=== PATIENT | male | born 1945 | race Caucasian/White ===

== ENCOUNTER → 2019-09-01 | Outpatient (CLI) | payer OTHER ==
[~2019-09-01] MED LIST: IOHEXOL 350 MG/ML 100ML INFUS..BTL IV ONE; IOHEXOL-350 75 ML VIAL IV ONE
== END | disposition home or self-care (01) ==
LOC: RAH 07:38
PROVIDERS: ATTEND Internal Medicine Cardiovascular Disease
DX: J43.2 Centrilobular emphysema (principal); J98.11 Atelectasis; I71.4 Abdominal aortic aneurysm, without rupture; N28.1 Cyst of kidney, acquired; I73.9 Peripheral vascular disease, unspecified; Z95.828 Presence of other vascular implants and grafts
CPT/HCPCS: 71275; 75635; Q9967 ×2

== ENCOUNTER → 2019-09-10 | Outpatient (CLI) | payer OTHER | END | disposition home or self-care (01) | LOC: SHCH 12:07 | PROVIDERS: ATTEND Internal Medicine Cardiovascular Disease | DX: R09.89 Other specified symptoms and signs involving the circulatory and respiratory systems (principal); I10 Essential (primary) hypertension | CPT/HCPCS: 93306; 93356; 93880 ==

== ENCOUNTER → 2019-09-14 | Outpatient (CLI) | payer OTHER ==
[~2019-09-14] VITALS: Ht 175.3 cm; Wt 95.3 kg
[~2019-09-14] MED LIST changes: +ASPI-556 PO; +GABA600T10 PO; +HYDR25TA PO; +INSU100V12 SQ; -IOHEXOL 350 MG/ML 100ML INFUS..BTL IV ONE; -IOHEXOL-350 75 ML VIAL IV ONE; +LISI-613 PO; +METF-446 PO; +METO-391 PO; +MULT-1258 PO; +PANT40TA54 PO; +POTA-79 PO; +REGADENOSON 0.4 MG/5 ML PF SYG IVP SCH; +SIMV80TA91 PO; +SUCR1TAB2 PO; +TERA5CAP4 PO; +VITA-164 PO
== END | disposition home or self-care (01) ==
LOC: SHCH 08:13
PROVIDERS: ATTEND Internal Medicine Cardiovascular Disease
DX: I10 Essential (primary) hypertension (principal); R07.89 Other chest pain
CPT/HCPCS: 78452; 93017; 96374; A9500 ×2; J2785

== ENCOUNTER 2019-10-22 07:23 | Day surgery (SDC) | payer OTHER ==
[~2019-10-22] VITALS: Ht 172.7 cm; Wt 92.5 kg
[2019-10-22] VITALS (12 sets, daily range): BP systolic 132–170; BP diastolic 62–88
[~2019-10-22 07:23] MED LIST changes: +ASPI-555 PO; -ASPI-556 PO; +PANT40TA25 PO; -PANT40TA54 PO; -REGADENOSON 0.4 MG/5 ML PF SYG IVP SCH
[2019-10-22 08:00] LABS: BASOPHILS % (AUTO) 1.1 % (0.0-5.0); EOSINOPHILS % (AUTO) 1.8 % (0.0-8.0); LYMPHOCYTES % (AUTO) 23.5 % (21.0-51.0); MEAN CORPUSCULAR HEMOGLOBIN 28.4 pg (27.0-33.0); MEAN CORPUSCULAR HGB CONC 31.6 g/dL (32.0-36.0); PLATELET COUNT (AUTO) 188 K/uL (130-400); RED BLOOD CELL COUNT(AUTO) 4.22 MIL/uL (4.50-6.20); RED CELL DISTRIBUTION WIDTH 13.2 % (11.0-15.5); WHITE BLOOD COUNT (AUTO) 8.4 K/uL (4.8-10.8)
[2019-10-22 08:18] LABS: APPEARANCE,URINE Clear (CLEAR); BILIRUBIN,URINE Negative (NEGATIVE); COLOR,URINE Yellow (YELLOW); GLUCOSE, URINE (UA) Negative (NEGATIVE); KETONES,URINE Negative (NEGATIVE); LEUKOCYTE ESTERASE ,URINE Small (NEGATIVE); NITRATE,URINE Positive (NEGATIVE); OCCULT BLOOD,URINE Negative (NEGATIVE); PROTEIN,URINE Trace mg/dL (NEGATIVE)
[2019-10-22 08:21] LABS: CREATININE 1.4 mg/dL (0.5-1.5); POTASSIUM 4.3 mmol/L (3.5-5.1)
--- NOTE | 2019-10-22 08:30 | NUR ---
REPORT CALLED [employer] AND SPOKE TO JEAN CARLOS EISENBERG PT DID NOT TAKE ASA THIS AM AND DOES NOT HAVE MEDICATION WITH HIM. NO NEW ORDERS GIVEN BY MD AT THIS TIME.
[2019-10-22 08:32] LABS: INR 0.99 (0.85-1.15); PARTIAL THROMBOPLASTIN TIME 26.6 SEC (26.3-35.5); PROTHROMBIN TIME 10.7 SEC (9.6-11.6)
[2019-10-22 08:52] LABS: BACTERIA,URINE Moderate /HPF (None Seen)
[2019-10-22 08:53] LABS: RBC,URINE 0-1 /HPF (0-1)
[2019-10-22] MEDS ORDERED: SODIUM CHLORIDE 0.9% 1000ML 1,000 ML IV ONE (09:15)
--- NOTE | 2019-10-22 09:40 | NUR ---
REPORT CALLED BOBTAIL DRIVER SERGEI ROBLES RN NOTIFIED OF UA RESULTS, WBC AND PT AFEBRILE AND HAS NOT BEEN TREATED FOR UTI RECENTLY. SERGEI WILL INFORM DR ROJAS
[2019-10-22] MEDS ORDERED: LEVOFLOXACIN 500 MG/D5W 100 ML 100 ML IV SCH (10:45)
[2019-10-22] MEDS ORDERED: LEVOFLOXACIN 500 MG/D5W 100 ML 100 ML ONE (11:18)
--- NOTE | 2019-10-22 12:45 | NUR ---
TRANSFER PT TAKEN TO IN [employer] AIDE VIA BED BY SERGEI EISENBERG. PT C/O BEING HUNGRY AND HEADACHE OTHERWISE PT IN NO DISTRESS
[2019-10-22] MEDS ORDERED: HEPARIN SODIUM 1000UNIT/ML 10ML VIAL ONE (12:57)
[2019-10-22] MEDS ORDERED: NICARDIPINE HCL 25 MG/10 ML ML IV ONE (12:57)
[2019-10-22] MEDS ORDERED: SODIUM BICARB 50MEQ 50ML VIAL ONE (12:57)
[2019-10-22] MEDS ORDERED: NITROGLYCERIN 2 MG/VIAL VIAL IV ONE (12:57)
[2019-10-22] MEDS ORDERED: MEPERIDINE-PF 25 MG/ML SYG ONE ×2 (12:58→13:12)
[2019-10-22] MEDS ORDERED: LIDOCAINE HCL 2% 20ML ONE (12:58)
[2019-10-22] MEDS ORDERED: IOHEXOL 350 MG/ML 100ML INFUS..BTL IV ONE (12:58)
[2019-10-22] MEDS ORDERED: IOHEXOL-350 50ML VIAL IV ONE (12:58)
[2019-10-22] MEDS ORDERED: MIDAZOLAM HCL 1 MG/ML 2ML VIAL ONE ×2 (12:58→13:11)
[2019-10-22] MEDS ORDERED: ASPIRIN 81MG TAB.CHEW ONE (14:07)
[2019-10-22] MEDS ORDERED: CLOPIDOGREL BISULFATE 300 MG TAB ONE (14:07)
[2019-10-22] MEDS ORDERED: SODIUM CHLORIDE 0.9% 1000ML 1,000 ML IV SCH (14:29)
[2019-10-22] MEDS ORDERED: ONDANSETRON HCL 4 MG/2 ML VIAL IVP PRN (14:30)
[2019-10-22] MEDS ORDERED: ACETAMINOPHEN-CODEINE 300/30MG TAB PO PRN ×2 (14:30)
[2019-10-22] MEDS ORDERED: DEXTROSE 50%-WATER 50 ML DISP.SYRIN IV PRN (14:30)
[2019-10-22] MEDS ORDERED: INSULIN HUMULIN R 100 UNIT/ML 3ML SQ SCH (16:30)
--- NOTE | 2019-10-22 16:40 | NUR ---
REPORT GIVEN TO MAURIZIO EISENBERG 4TH FLOOR AT 1640. PT STABLE NO DISTRESS NO C/O PAIN. TR BAND IN PLACE TO RT WRIST. PT TRANSFERRED IN VIA BED WITH PERSONAL BELONGINGS. IV TO LT HAND INTACT FLUIDS RUNNING 100ML/HR. ON ARRIVAL TO DAY PATIENT DEPT, TR BAND HAS 14ML AIR: TR BAND: 2ML REMOVED AT 1620 TR BAND: 2ML REMOVED AT 1635 TR BAND: 2ML REMOVED AT 1650
--- NOTE | 2019-10-22 16:55 | NUR ---
POST HEART CATH. PROCEDURE: PT. TO ROOM 425, AWAKE AND ALERT WITH TR BAND IN PLACE TORT. WRIST.
--- NOTE | 2019-10-22 17:00 | NUR ---
ORDERS IN PLACE FOR PT. TO BE DISCHARGED AT 8PM RONNIE ALVA PT. AND SPOUSE ARE AWARE .
--- NOTE | 2019-10-22 17:05 | NUR ---
2ML AIR REMOVED TR BAND.
--- NOTE | 2019-10-22 17:20 | NUR ---
2ML AIR FROM TR BAND.
--- NOTE | 2019-10-22 17:35 | NUR ---
2 ML AIR REMOVED FROM TR BAND
--- NOTE | 2019-10-22 17:50 | NUR ---
LAST 2ML OF AIR REMOVED AND TR BAND REMOVED, PRESSURE DRESSING APPLIED, NO BLEEDING OR SWELLING OR BRUISING PRESENT.
--- NOTE | 2019-10-22 18:19 | NUR ---
PT. IS ASLEEP AT PRESENT AND BREATHING EASY ON ROOM AIR.
--- NOTE | 2019-10-22 20:10 | NUR ---
PT DISCHARGED AT THIS TIME. INSTRUCTED TO HOLD METFORMIN FOR 48HRS. NO DISTRESS NOTED. TELE PACK AND IV REMOVED. TO MANAGER FIELD SALES AT FRONT ENTRANCE.
== END 2019-10-22 20:27 | disposition short-term general hospital (02) ==
LOC: DAH 07:23 → CLH 07:23 → 4DH 16:20 → CLH 20:27
PROVIDERS: ATTEND Internal Medicine Cardiovascular Disease
DX: I25.10 Atherosclerotic heart disease of native coronary artery without angina pectoris (principal); I10 Essential (primary) hypertension; E78.5 Hyperlipidemia, unspecified; E11.40 Type 2 diabetes mellitus with diabetic neuropathy, unspecified; Z88.0 Allergy status to penicillin; Z79.82 Long term (current) use of aspirin; Z79.01 Long term (current) use of anticoagulants; Z79.84 Long term (current) use of oral hypoglycemic drugs; Z79.899 Other long term (current) drug therapy
CPT/HCPCS: 36415; 71045; 80048; 81001; 82948 ×2; 85025; 85610; 85730; 87088; 93005; 93458; A4215; A4216; A4221; A4222; A4223 ×3; A4606; A4663; C1769 ×2; C1874 ×2; C1887; C1894; C9600; C9601; J1644 ×2; J1956; J2175 ×2; J2250 ×2; J3490 ×4; J7030 ×2; Q9965 ×2; Q9967 ×2; 99156; 99157; G0378

== ENCOUNTER → 2020-06-14 | Outpatient (CLI) | payer OTHER ==
[~2020-06-14] MED LIST changes: +ASCO-477 PO; -ASPI-555 PO; +ASPI-556 PO; +CILO100T PO; +CLOP75TA32 PO; +FERS325 PO; -METF-446 PO; -PANT40TA25 PO; +PANT40TA54 PO; -SUCR1TAB2 PO; +VIT1CAPS5 PO
== END | disposition home or self-care (01) ==
LOC: SHCH 08:25
PROVIDERS: ATTEND Internal Medicine Cardiovascular Disease
DX: E78.5 Hyperlipidemia, unspecified (principal); I10 Essential (primary) hypertension
CPT/HCPCS: 93306; 93356

== ENCOUNTER → 2022-10-18 | Outpatient (CLI) | payer OTHER ==
[~2022-10-18] MED LIST changes: -CILO100T PO; +CILO100T3 PO; -LISI-613 PO; +LISI20TA24 PO; +POTA-364 PO; -POTA-79 PO; -VITA-164 PO; +VITA-348 PO
== END | disposition home or self-care (01) ==
LOC: SHCH 08:41
PROVIDERS: ATTEND Internal Medicine Cardiovascular Disease
DX: I48.0 Paroxysmal atrial fibrillation (principal); I11.9 Hypertensive heart disease without heart failure; E11.9 Type 2 diabetes mellitus without complications; E78.5 Hyperlipidemia, unspecified
CPT/HCPCS: 93306

== ENCOUNTER → 2022-12-16 | Outpatient (CLI) | payer OTHER ==
[~2022-12-16] MED LIST changes: +REGADENOSON 0.4 MG/5 ML PF SYG IVP ONE
== END | disposition home or self-care (01) ==
LOC: SHCH 08:03
PROVIDERS: ATTEND Internal Medicine Cardiovascular Disease
DX: R94.39 Abnormal result of other cardiovascular function study (principal); I48.0 Paroxysmal atrial fibrillation; I48.92 Unspecified atrial flutter; I47.20 Ventricular tachycardia, unspecified
CPT/HCPCS: 78452; 96374; 93017; J2785; A9500 ×2

== ENCOUNTER 2022-12-20 17:43 | Observation (INO) | payer OTHER ==
[~2022-12-20] VITALS: Ht 175.3 cm; Wt 92.8 kg
[~2022-12-20 17:43] MED LIST changes: -REGADENOSON 0.4 MG/5 ML PF SYG IVP ONE
[2022-12-20 18:26] LABS: EOSINOPHILS % (AUTO) 2.6 % (0.0-8.0); LYMPHOCYTES % (AUTO) 30.5 % (21.0-51.0); MEAN CORPUSCULAR HGB CONC 31.6 g/dL (32.0-36.0); MEAN CORPUSCULAR VOLUME 85.6 fL (79-99); MONOCYTES % (AUTO) 9.4 % (3.0-13.0); NEUTROPHILS % (AUTO) 55.9 % (40.0-77.0); PLATELET COUNT (AUTO) 176 K/uL (130-400); RED BLOOD CELL COUNT(AUTO) 3.74 MIL/uL (4.50-6.20); RED CELL DISTRIBUTION WIDTH 14.8 % (11.0-15.5); WHITE BLOOD COUNT (AUTO) 7.2 K/uL (4.8-10.8)
[2022-12-20 18:53] LABS: ALBUMIN 3.7 g/dL (3.5-5.0); CREATININE 1.6 mg/dL (0.5-1.5); MAGNESIUM 1.9 mg/dL (1.80-2.40); POTASSIUM 4.2 mmol/L (3.5-5.1); TOTAL PROTEIN, SERUM 7.1 g/dL (6.0-8.3)
[2022-12-20] MEDS ORDERED: MECLIZINE HCL 25 MG TABLET PO PRN (21:30)
[2022-12-20] MEDS ORDERED: ONDANSETRON 4MG INJ IV PRN (21:30)
[2022-12-20] MEDS ORDERED: ACETAMINOPHEN 325 MG TAB PO PRN ×2 (21:30)
[2022-12-20] MEDS ORDERED: LACTULOSE 20 GM/30 ML UDCUP PO PRN (21:30)
[2022-12-20] MEDS: LACTATED RINGERS 1000ML 1,000 ML IV SCH (21:35)
[2022-12-20 23:00] VITALS: BP 144/75
[2022-12-21 05:00] VITALS: BP 121/62
[2022-12-21] MEDS: INSULIN HUMULIN R 100 UNIT/ML 3ML SQ SCH ×3 (05:39→10:37)
[2022-12-21] MEDS ORDERED: MAGNESIUM 2GM PREMIX 50ML 50 ML IV ONE (07:49)
[2022-12-21 08:00] VITALS: BP 153/78
[2022-12-21] MEDS: LACTATED RINGERS 1000ML 1,000 ML IV SCH (08:31)
[2022-12-21] MEDS ORDERED: FAMOTIDINE 20MG VIAL IV SCH (09:00)
[2022-12-21 11:00] VITALS: BP 158/72
== END 2022-12-21 15:45 | disposition home or self-care (01) ==
LOC: EDH 17:43 → INTOOBSV 21:14 → EDHIP 21:14 → 3BH 12-21 00:37
PROVIDERS: ADMIT Hospitalist; ATTEND Hospitalist
DX: R42 Dizziness and giddiness (principal); Z20.822 Contact with and (suspected) exposure to COVID-19; I95.9 Hypotension, unspecified; I10 Essential (primary) hypertension; E11.40 Type 2 diabetes mellitus with diabetic neuropathy, unspecified; I25.10 Atherosclerotic heart disease of native coronary artery without angina pectoris; I48.91 Unspecified atrial fibrillation; K21.9 Gastro-esophageal reflux disease without esophagitis; N40.0 Benign prostatic hyperplasia without lower urinary tract symptoms; D50.9 Iron deficiency anemia, unspecified; H90.3 Sensorineural hearing loss, bilateral; H93.13 Tinnitus, bilateral; I48.0 Paroxysmal atrial fibrillation; K22.70 Barrett's esophagus without dysplasia; G45.9 Transient cerebral ischemic attack, unspecified; N40.1 Benign prostatic hyperplasia with lower urinary tract symptoms; N39.498 Other specified urinary incontinence; N13.8 Other obstructive and reflux uropathy; R39.11 Hesitancy of micturition; R39.14 Feeling of incomplete bladder emptying; R33.8 Other retention of urine; R39.16 Straining to void; R39.15 Urgency of urination; R39.12 Poor urinary stream; R35.0 Frequency of micturition; R35.1 Nocturia; E78.00 Pure hypercholesterolemia, unspecified; Z95.5 Presence of coronary angioplasty implant and graft; Z87.891 Personal history of nicotine dependence; Z88.0 Allergy status to penicillin; Z86.73 Personal history of transient ischemic attack (TIA), and cerebral infarction without residual deficits; Z86.79 Personal history of other diseases of the circulatory system; Z79.01 Long term (current) use of anticoagulants; Z79.82 Long term (current) use of aspirin; Z79.899 Other long term (current) drug therapy; Z79.4 Long term (current) use of insulin; Z79.02 Long term (current) use of antithrombotics/antiplatelets; Z90.49 Acquired absence of other specified parts of digestive tract; Z98.890 Other specified postprocedural states; Z95.1 Presence of aortocoronary bypass graft
CPT/HCPCS: 96361 ×2; 99285; 83735; 84484; 80053; 85025; 87804 ×2; 83605; 36415; 87635; 71045; 70450; 70553; 93005; 96365; 96366; 96375; 82948 ×3; C9803; G0378 ×3; J3475; J3490; J7120

== ENCOUNTER 2023-01-28 05:41 | Day surgery (SDC) | payer OTHER ==
[2023-01-24 11:39] LABS: BASOPHILS # (AUTO) 0.07 K/uL (0.00-0.20); EOSINOPHILS # (AUTO) 0.16 K/uL (0.00-0.70); EOSINOPHILS % (AUTO) 2.2 % (0.0-8.0); HEMATOCRIT 30.6 % (42-54); IMMATURE GRANULOCYTE ABSOLUTE 0.06 K/uL (0-1); LYMPHOCYTES # (AUTO) 1.7 K/uL (1.0-4.8); LYMPHOCYTES % (AUTO) 23.8 % (21.0-51.0); MEAN CORPUSCULAR HEMOGLOBIN 24.1 pg (27.0-33.0); MEAN CORPUSCULAR HGB CONC 29.7 g/dL (32.0-36.0); MONOCYTES # (AUTO) 0.7 K/uL (0.1-1.0); MONOCYTES % (AUTO) 9.4 % (3.0-13.0); NEUTROPHILS # (AUTO) 4.6 K/uL (1.8-7.7); NEUTROPHILS % (AUTO) 62.8 % (40.0-77.0); PLATELET COUNT (AUTO) 161 K/uL (130-400); RED BLOOD CELL COUNT(AUTO) 3.78 MIL/uL (4.50-6.20); RED CELL DISTRIBUTION WIDTH 15.9 % (11.0-15.5); WHITE BLOOD COUNT (AUTO) 7.3 K/uL (4.8-10.8)
[2023-01-24 11:49] LABS: CREATININE 1.5 mg/dL (0.5-1.5); POTASSIUM 4.2 mmol/L (3.5-5.1)
[2023-01-24 11:50] LABS: INR 1.02 (0.85-1.15); PROTHROMBIN TIME 11.8 SEC (9.6-11.6)
[2023-01-24 11:51] LABS: PARTIAL THROMBOPLASTIN TIME 30.2 SEC (26.3-35.5)
[2023-01-24 12:11] VITALS: BP 139/64; PULSE 84; RESP 20
[2023-01-24 12:12] LABS: B-TYPE NATRIURETIC PEPTIDE 82 pg/mL (0-100)
[2023-01-24 12:21] LABS: APPEARANCE,URINE CLEAR (CLEAR); BILIRUBIN,URINE NEGATIVE (NEGATIVE); COLOR,URINE YELLOW (YELLOW); GLUCOSE, URINE (UA) >=1000 mg/dL (NEGATIVE); KETONES,URINE NEGATIVE (NEGATIVE); LEUKOCYTE ESTERASE ,URINE NEGATIVE Leu/uL (NEGATIVE); NITRATE,URINE NEGATIVE (NEGATIVE); OCCULT BLOOD,URINE NEGATIVE (NEGATIVE); PH,URINE 5.5 (5.0-8.0); PROTEIN,URINE NEGATIVE (NEGATIVE); UROBILINOGEN,URINE 0.2 mg/dL (0.2-1.0)
[2023-01-24 12:25] LABS: ADD UA MICROSCOPIC YES
[2023-01-24 12:27] LABS: BACTERIA,URINE RARE /HPF (None Seen); MUCUS,URINE RARE LPF (None Seen); NON-SQUAMOUS EPITHELIAL CELL 1 /HPF (0-2); RBC,URINE 26-50 /HPF (0-1); SQUAMOUS EPITHELIAL CELL,UR RARE /HPF (0-2)
[2023-01-28] VITALS (10 sets, daily range): BP systolic 124–147; BP diastolic 58–87; PULSE 65–82; RESP 15–21
[~2023-01-28] VITALS: Ht 175.3 cm; Wt 92.1 kg
[~2023-01-28 05:41] MED LIST changes: +APIX5TAB PO; -ASPI-556 PO; -CILO100T3 PO; +DRON400T7 PO; +EMPA25TA PO; -FERS325 PO; -GABA600T10 PO; -HYDR25TA PO; -LISI20TA24 PO; +METF-446 PO; -METO-391 PO; -MULT-1258 PO; +OMEG-148 PO; -VITA-348 PO; +VITA-395 PO; +VITA1CAP85 PO
[2023-01-28] MEDS ORDERED: ISOVUE-300 100 ML VIAL IV ONE (05:42)
[2023-01-28] MEDS ORDERED: 0.9%NACL 1000ML 1,000 ML IV ONE (06:27)
[2023-01-28] MEDS ORDERED: LIDOCAINE HCL 400MG/20ML VIAL ONE (07:06)
[2023-01-28] MEDS ORDERED: SODIUM BICARB 50MEQ 50ML VIAL 50 ML ONE (07:06)
[2023-01-28] MEDS ORDERED: IOHEXOL-350 75 ML VIAL IV ONE (07:07)
[2023-01-28] MEDS ORDERED: MIDAZOLAM HCL 1 MG/ML 2ML VIAL ONE ×3 (07:07→07:55)
[2023-01-28] MEDS ORDERED: MEPERIDINE-PF 25 MG/ML SYG ONE ×3 (07:07→07:55)
[2023-01-28] MEDS ORDERED: HEPARIN 10,000 UNIT/10ML (1,000 UNIT/ML) VIAL ONE (07:07)
[2023-01-28] MEDS ORDERED: NITROGLYCERIN 50MG VIAL ONE (07:07)
[2023-01-28] MEDS ORDERED: NICARDIPINE 25MG INJ IV ONE (07:23)
[2023-01-28] MEDS ORDERED: GLUCAGON 1MG KIT 1 MG ML IM PRN (08:30)
[2023-01-28] MEDS ORDERED: DEXTROSE 50%-WATER 50 ML DISP.SYRIN IV PRN (08:30)
[2023-01-28] MEDS ORDERED: INSULIN HUMULIN R 100 UNIT/ML 3ML SQ SCH (11:30)
== END 2023-01-28 12:30 | disposition home or self-care (01) ==
LOC: DAH 05:41
PROVIDERS: ATTEND Internal Medicine Cardiovascular Disease
DX: I25.119 Atherosclerotic heart disease of native coronary artery with unspecified angina pectoris (principal); E11.22 Type 2 diabetes mellitus with diabetic chronic kidney disease; I13.0 Hypertensive heart and chronic kidney disease with heart failure and stage 1 through stage 4 chronic kidney disease, or unspecified chronic kidney disease; N18.9 Chronic kidney disease, unspecified; I50.32 Chronic diastolic (congestive) heart failure; I48.0 Paroxysmal atrial fibrillation; E78.5 Hyperlipidemia, unspecified; Z79.899 Other long term (current) drug therapy; Z86.73 Personal history of transient ischemic attack (TIA), and cerebral infarction without residual deficits; Z95.5 Presence of coronary angioplasty implant and graft; Z90.89 Acquired absence of other organs; Z98.890 Other specified postprocedural states; Z88.0 Allergy status to penicillin; Z79.01 Long term (current) use of anticoagulants
CPT/HCPCS: 80048; 83880; 85025; 85610; 85730; 87077; 87088; 87186; 81001; 36415; 71045; 93005; 93458; 82948 ×2; C1769; A4649; C1894; Q9967; J3490 ×4; J7030; J1644 ×2; J2250 ×3; J2175 ×3; A4215; A4222; A4221; A4663; A4216; A4606; A4223 ×3; 99156; 99157

== ENCOUNTER → 2023-02-13 | Outpatient (CLI) | payer OTHER | END | disposition home or self-care (01) | LOC: SHCH 09:13 | PROVIDERS: ATTEND Internal Medicine Cardiovascular Disease | DX: I71.40 Abdominal aortic aneurysm, without rupture, unspecified (principal) | CPT/HCPCS: 93978 ==

== ENCOUNTER → 2024-09-03 | Outpatient (CLI) | payer OTHER ==
[~2024-09-03] MED LIST changes: +IOHEXOL 350 MG/ML 100ML INFUS..BTL IV ONE
--- NOTE | 2024-09-03 11:31 | HMCIMG ---
CT ANGIOGRAM OF THE ABDOMEN AND PELVIS WITHOUT AND WITH CONTRAST INDICATION: Abdominal aortic aneurysm, without rupture, unspecified TECHNIQUE: Routine 3 mm thick axial images were acquired through the abdomen and pelvis before and after the intravenous administration of 100 mL of Omnipaque 350 IV contrast. Maximum intensity projection coronal and sagittal reconstruction images provided for interpretation. 3-D volume renderings also included. CT was performed with one or more of the following dose reduction techniques: Automated exposure control, adjustment of the mA and/or kV according to patient size, or use of iterative reconstruction technique. COMPARISON: 09/01/2019 FINDINGS: CTA ABDOMEN: Stable small simple bilateral renal cysts without hydronephrosis. The liver, spleen, gallbladder, pancreas, and adrenal glands appear normal. No significant retroperitoneal adenopathy. No evidence for intra-abdominal fluid collection or abscess. No evidence for pneumoperitoneum or intra-abdominal free fluid. Slight decrease in size of fusiform infrarenal abdominal aortic aneurysm from 5.1 cm to 4.9 cm. Patent aortobiiliac stent without evidence for endoleak. Focal mild to moderate soft plaque along the medial wall of the distal right common iliac artery on axial image 97 of series 4 contributing to 40% stenosis. Streak artifact from vascular coiling at the left internal iliac arterial origin, and left internal iliac artery is not well-visualized, but distal branches are patent. Remainder of the iliac vessels are patent. Patent bilateral common femoral arteries. Tiny fat-containing nonobstructing umbilical hernia. CTA PELVIS: No significant pelvic adenopathy. No evidence for pelvic fluid collection or abscess. The small and large bowel loops appear normal without evidence for bowel obstruction. The appendix is normal. No inflammatory changes identified within the lower abdomen and pelvis. The urinary bladder appears normal. The visualized osseous structures are normal. IMPRESSION: 1. Slight decrease in size of fusiform infrarenal abdominal aortic aneurysm from 5.1 cm to 4.9 cm. Patent aortobiiliac stent without evidence for endoleak. 2. Focal mild to moderate soft plaque along the medial wall of the distal right common iliac artery contributing to 40% stenosis. 3. Tiny fat-containing nonobstructing umbilical hernia. 4. Additional minor findings, postsurgical changes, and pertinent negatives as reported.
== END ==
LOC: RAH 07:16
PROVIDERS: ATTEND Internal Medicine Cardiovascular Disease
DX: I71.43 Infrarenal abdominal aortic aneurysm, without rupture (principal); N28.1 Cyst of kidney, acquired; I70.201 Unspecified atherosclerosis of native arteries of extremities, right leg; K42.9 Umbilical hernia without obstruction or gangrene
CPT/HCPCS: 74174; Q9967

== ENCOUNTER → 2024-09-06 | Outpatient (CLI) | payer OTHER ==
[~2024-09-06] MED LIST changes: -IOHEXOL 350 MG/ML 100ML INFUS..BTL IV ONE
--- NOTE | 2024-09-09 10:10 | HMCSR ---
APPROVED REPORT Laterality: Bilateral Indications R09.89 Doppler Spectral Velocity Analysis PSV / EDVPSV / EDV ECA (R) 92 / cm/sECA (L) 90 / cm/s dICA (R) 91 / 16 cm/sdICA (L) 87 / 23 cm/s Matt (R) 110 / 26 cm/smICA (L) 99 / 22 cm/s pICA (R) 141 / 38 cm/spICA (L) 82 / 21 cm/s dCCA (R) 70 / 15 cm/sdCCA (L) 57 / 12 cm/s mCCA (R) 64 / 12 cm/smCCA (L) 73 / 15 cm/s pCCA (R) 57 / 13 cm/spCCA (L) 69 / 21 cm/s Vert (R) 54 / cm/sVert (L) 37 / cm/s Subl. (R) 105 / cm/sSubl. 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 LICA shows no stenosis. Bilateral vertebral arteries appear antegrade. 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 LICA shows no stenosis. Bilateral vertebral arteries appear antegrade. 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 LICA shows no stenosis. Bilateral vertebral arteries appear antegrade.
== END | disposition home or self-care (01) ==
LOC: SHCH 14:11
PROVIDERS: ATTEND Internal Medicine Cardiovascular Disease
DX: I65.23 Occlusion and stenosis of bilateral carotid arteries (principal); R09.89 Other specified symptoms and signs involving the circulatory and respiratory systems
CPT/HCPCS: 93880

== ENCOUNTER → 2024-09-21 | Outpatient (CLI) | payer OTHER ==
[~2024-09-21] MED LIST changes: +SULF1TAB89 PO
--- NOTE | 2024-09-23 06:38 | HMCSR ---
APPROVED REPORT EXAM: Two-dimensional and M-mode echocardiogram with Doppler and color Doppler. INDICATION ICD: Shortness of breath R06.02 2D Dimensions RVDd3.8 cmLVEF(%)40.1 (>50%)LVED Vol(simp.)114.0 mL IVSd0.9 (0.7-1.1cm)FS(%)20 %LVES Vol(simp.)61.0 mL LVDd6.0 (3.8-5.6cm)Ao Root(2D)2.9 (2.0-3.7cm)LVEF(%, simp.)46 % PWd1.0 (0.7-1.1cm)LVOT diam2.1 (1.8-2.4cm)LA ESV INDEX (BP)29.85 mL/m2 LVDs4.8 (2.5-4.0cm)IVC diam1.9 cm Aortic Valve AoV Vmax1.3 m/Manny Peak GR6.9 mmHgLVOT Vmax0.9 m/s AoV VTI0.3 mAo Mean GR4.3 mmHgLVOT VTI0.18 m CLIFF (VMAX)1.9 cm2Al P1/2T540 msAVA (VTI) 1.9 cm2 Mitral Valve MV E Vmax79.3 cm/sDECEL Dtoa883 ms MV A Ffns516.9 cm/s E/A ratio0.7 MR Max PG19 mmHg TDI E/E' Zfenvj82.5E/E' Harxcet63.5 Pulmonary Valve PV Vmax0.9 m/sPV VTI0.18 mPV Mean GR2 mmHg PV Peak GR3.6 mmHgPI End Koki. Yefri 1.2 cm/s Tricuspid Valve RAP (EST) 8 mmHg Left Ventricle The left ventricle is mildly dilated. There is normal left ventricular wall thickness. LVEF is 50%. N o left ventricle thrombus noted on this study. Stage I diastolic dysfunction. Right Ventricle The right ventricle is normal size. The right ventricular systolic function is normal. Atria The left atrium size is normal. The right atrium size is normal. Aortic Valve Aortic valve is trileaflet. Aortic valve leaflets are sclerotic but open well. Mild aortic regurgitat ion. There is no aortic valvular stenosis. Mitral Valve Mitral valve leaflets are sclerotic but open well. Mitral regurgitation is trace. There is no mitral valve stenosis. Tricuspid Valve The tricuspid valve leaflets appear normal. There is trace tricuspid regurgitation. Pulmonic Valve The pulmonic valve leaflets appear normal. There is trace pulmonic valvular regurgitation. Great Vessels The aortic root is normal in size. IVC is dilated and collapses >50% with inspiration. Pericardium No pericardial effusion. Conclusion The left ventricle is mildly dilated. LVEF is 50%. Stage I diastolic dysfunction. The right ventricle is normal size. The left atrium size is normal. Aortic valve is trileaflet. Aortic valve leaflets are sclerotic but open well. Mild aortic regurgitation. Mitral valve leaflets are sclerotic but open well. Mitral regurgitation is trace. There is trace tricuspid regurgitation. There is trace pulmonic valvular regurgitation. The aortic root is normal in size. IVC is dilated and collapses >50% with inspiration. No pericardial effusion.
== END | disposition home or self-care (01) ==
LOC: SHCH 13:51
PROVIDERS: ATTEND Internal Medicine Cardiovascular Disease
DX: I08.0 Rheumatic disorders of both mitral and aortic valves (principal); R06.02 Shortness of breath
CPT/HCPCS: 93306

== ENCOUNTER → 2024-10-07 | Outpatient (CLI) | payer OTHER ==
[~2024-10-07] MED LIST changes: -EMPA25TA PO; -OMEG-148 PO
[2024-10-07] MEDS: REGADENOSON 0.4 MG/5 ML PF SYG IVP ONE (16:06)
== END | disposition home or self-care (01) ==
LOC: SHCH 08:04
PROVIDERS: ATTEND Internal Medicine Cardiovascular Disease
DX: I25.10 Atherosclerotic heart disease of native coronary artery without angina pectoris (principal)
CPT/HCPCS: 78452; 93017; J2785; A9500 ×2